=== PATIENT | male | born 1950 | race Caucasian/White ===

== ENCOUNTER → 2016-09-17 | Outpatient (CLI) | payer MEDICARE, BC ==
--- NOTE | 2016-09-17 10:04 | CT ---
EXAMINATION TYPE: CT sinus wo con DATE OF EXAM: 09/17/2016 COMPARISON: NONE HISTORY: sinusitis CT DLP: 564.4 mGycm CONTRAST: 0 mL of Omnipaque 300 The paranasal sinuses are examined in the axial plane at 2 mm thick sections. Reconstructed images i n the coronal plane were obtained. There is dental amalgam scatter artifact There is mucosal thickening and small retention cyst within the right maxillary sinus. Left maxillary sinus appears clear. Minimal mucosal thickening is within the bilateral anterior and left mid ethmo id air cells. The sphenoid sinuses are clear. The frontal sinuses are clear. The septum is evaluated. There is septal deviation to the right. Right septal spur is also noted. Th ere is a left chloé bullosa. The ostiomeatal units are patent. IMPRESSIONS: 1. Mild mucosal thickening or retention cyst within the right maxillary sinus. 2. Right septal deviation.
== END | disposition home or self-care (01) ==
LOC: RADCTMAIN 07:07
PROVIDERS: ATTEND Otolaryngology
DX: J34.2 Deviated nasal septum (principal); J01.90 Acute sinusitis, unspecified
CPT/HCPCS: 70486; 94060; 94726; 94729

== ENCOUNTER → 2017-05-01 | Outpatient (CLI) | payer MEDICARE, BC ==
--- NOTE | 2017-05-01 12:36 | XR ---
EXAMINATION TYPE: XR chest 2V DATE OF EXAM: 05/01/2017 COMPARISON: 09/28/2012 HISTORY: Cough for 4 weeks with history of asthma TECHNIQUE: Frontal and lateral views of the chest are obtained. FINDINGS: There is no focal air space opacity, pleural effusion, or pneumothorax seen. The cardiac silhouette size is within normal limits. The osseous structures are intact. Mild multilevel degener ative changes of the thoracic spine are noted. Chronic mild right hemidiaphragm elevation is seen wit h eventration. IMPRESSION: No acute cardiopulmonary process.
== END | disposition home or self-care (01) ==
LOC: RADXRMAIN 11:42
PROVIDERS: ATTEND Family Medicine
DX: J45.901 Unspecified asthma with (acute) exacerbation (principal)
CPT/HCPCS: 71046

== ENCOUNTER 2018-06-25 10:37 | Day surgery (SDC) | payer BC, MEDICARE ==
[2018-06-21 15:06] VITALS: BMI 29.5
[~2018-06-25 10:37] MED LIST: ACETAMINOPHEN TAB 500 MG TAB PO ONE; ONDANSETRON 4 MG/2 ML VIAL IVP ONE; TRANEXAMIC ACID 1,000 MG in SODIUM CHLORIDE 0.9% 100 ML IVPB ONE; ceFAZolin IN SWFI 2 GM/20 ML SYRINGE IVP ONE
[2018-06-25] MEDS ORDERED: DEXAMETHASONE SOD PHOS (MDV) 100 MG/10 ML VIAL IVP ONE (11:20)
[2018-06-25] MEDS ORDERED: LACTATED RINGERS 1,000 ML IV ONE ×2 (11:20)
[2018-06-25] MEDS ORDERED: fentaNYL (PF) 50 MCG/ML 2 ML AMP IVP ONE (11:29)
[2018-06-25] MEDS ORDERED: MIDAZOLAM 2 MG/2 ML VIAL IVP ONE (11:29)
--- NOTE | 2018-06-25 12:02 | P.ONQ ---
Anesthesiology Proc Note - PNB - Peripheral Nerve Block Performed Right Interscalene Single Time Out Performed: Yes Procedure Start Time: 11:28 Indication: Acute Post-Operative Pain Specifically requested for management of pain by DrMel: Anish Amaya Sedation Type: Sedate with meaningful contact maintained Preparation: Sterile Prep Position: Supine Catheter: None Needle Types: Other (see comment) (Pajunk) Needle Size: 50mm (2") Needle Gauge: 21 Technique: Ultrasound Injectate: 0.5% Ropivacaine (see comment for volume) (20cc) Blood Aspirated: No Pain Paresthesia on Injection Noted: No Resistance on Injection: Normal Events: Uneventful and Well Tolerated
[2018-06-25] MEDS ORDERED: ePHEDrine SULFATE/0.9% NACL/PF 50 MG/5 ML SYRINGE IV ONE (12:42)
[2018-06-25] MEDS ORDERED: PROPOFOL 10 MG/ML 20 ML VIAL IV ONE (12:42)
[2018-06-25] MEDS ORDERED: MIDAZOLAM 2 MG/2 ML VIAL ONE (12:42)
[2018-06-25] MEDS ORDERED: ROCURONIUM BROMIDE 10 MG/ML 10 ML VIAL IV ONE (12:42)
[2018-06-25] MEDS ORDERED: SUCCINYLCHOLINE CHLORIDE 100 MG/5 ML SYR IV ONE (12:42)
[2018-06-25] MEDS ORDERED: SODIUM CHLORIDE 0.9% 100 ML BAG ONE (12:42)
[2018-06-25] MEDS ORDERED: EPINEPHrine 4 MG in SODIUM CHLORIDE 0.9% IRRIGATIO 3,000 ML IRRIGATION ONE ×8 (12:42)
[2018-06-25] MEDS ORDERED: ROPIVACAINE 5 MG/ML 30 ML VIAL ONE (12:42)
[2018-06-25] MEDS ORDERED: fentaNYL (PF) 50 MCG/ML 2 ML AMP ONE (12:42)
[2018-06-25] MEDS ORDERED: TRANEXAMIC ACID 1,000 MG/10 ML VIAL ONE (12:42)
[2018-06-25 15:26] VITALS: TEMP 98
--- NOTE | 2018-06-25 15:38 | P.OP ---
Date of Procedure: 06/25/18 Procedure(s) Performed: right shoulder rcr 1 anchor margin convergence x2 SAD, PDCE, bicep tenotomy, chondroplasty of humeral head and glenoid Grade IV OA GHJ and ACJ severe biceps tendinopathy Labral degen severe partial tear subscap severe impingement with SAB and adhesions PORTIA Salazar assist PREOPERATIVE DIAGNOSES: 1. Right shoulder rotator cuff tear. 2. Chronic impingement syndrome. 3. Acromioclavicular osteoarthritis. 4. Superior labral degenerative tear. POSTOPERATIVE DIAGNOSES: 1. Right shoulder rotator cuff tear (supraspinatus, 1.5 cm, U-shaped). 2. Chronic impingement syndrome. 3. Acromioclavicular osteoarthritis. 4. Labral degenerative tear. 5. Severe biceps tendon degeneration 6. Moderate adhesions glenohumeral joint and subacromial space 7. Grade 4 osteoarthritis glenohumeral joint PROCEDURES PERFORMED: 1. Right shoulder arthroscopy with rotator cuff repair (margin convergence plus 1 anchor) 2. Arthroscopic partial distal clavicle excision 3. Arthroscopic lysis of adhesions with subacromial bursectomy and manipulation under anesthesia 4. Arthroscopic debridement superior labral tear, partial subscapularis tear, chondroplasty of humeral head and glenoid, and biceps tenotomy 5. Arthroscopic subacromial decompression ANESTHESIA: General. ESTIMATED BLOOD LOSS: Less than 25 mL TOURNIQUET: None TROUBLE LOCATOR TEST DESK: Sandra Salazar (assistance with: Positioning, retraction, camera operation, repair, closure, dressing) COMPLICATIONS: None. DISPOSITION: To postanesthesia care unit INDICATIONS: Mr. Vaughn is a 68 year old male with a history of rotator cuff difficulties. He has been treated with conservative management with physical therapy with no significant relief of symptoms. MRI was suspicious for a tear, and the patient wishes to have it repaired. I have examined the patient in the office and proposed rotator cuff repair via an arthroscopic or mini-open approach, as well as other procedures to optimize the shoulder and outcome, such as decompression of spurs and debridement of loose or degenerated tissue. I have explained the risks of this surgery as being inclusive of, but not limited to: bleeding, infection, scarring, discomfort, blood vessel and/or nerve damage, need for further surgery, stiffness, persistence or worsening of problems, , and other risks. The consent form has been completed and signed. PROCEDURE: Appropriate consent was obtained from the patient. The patient was taken to the operating room and placed in the supine position. General anesthesia was initiated and after confirmation of adequate anesthesia, the patients right shoulder was examined. Initial range of motion showed flexion to 150, abduction to 150, external rotation to 50, and internal rotation to 35. Using Codman's paradox maneuver, the shoulder was manipulated. Final range of motion showed flexion to 170 abduction to 170, external rotation to 70 and internal rotation to 70. The shoulder was stable. Next, the patient was rotated into the lateral decubitus position and stabilized to the table with a becker bag and padded straps. Care was taken to make sure that all pressure points were adequately padded. Bear-hugger was used along with bilateral leg sequential compression devices. Prepping and draping was completed in the usual aseptic fashion using ChloraPrep. The patient received intravenous antibiotics prior to incision. The shoulder was suspended from traction with 15 lbs. of weight in a position of 45 degrees abduction. Landmarks were outlined with a skin marking pen. A spinal needle was inserted into the glenohumeral joint and fluid was administered to distend the joint. Some pressure was noted after 100 mL was administered. A posterior portal was created using an 11 blade and the arthroscopic canula, over a dull trocar, was carefully inserted into the joint. Arthroscopy then commenced. An anterior portal was inserted in the rotator interval area using inside-out technique. Biceps tendon showed severe deterioration. Biceps tenotomy was performed using a shaver. The tendon stump was then allowed to retract into the bicipital groove. Infraspinatus and teres minor attachments were normal. Subscapularis tendon showed a partial tear along the superior rolled border which was addressed with debridement. Hyaline cartilage of the glenoid and humeral head showed degenerative changes typical for age. Supraspinatus attachment after superficial debridement showed a 1.5 cm tear which was full thickness and U- shaped. No loose bodies were noted in the joint. Superior labrum showed moderate degenerative tearing but was well-attached. Negative peel back sign. There was also evidence of significant degenerative labral tearing in the inferior area. Glenohumeral joint was severely arthritic, with changes on both sides of the joint. Chondroplasty was performed on both the glenoid and the humerus using a ArthroCare device and mechanical shaver. Additionally, loose fibers of labrum in this area were debrided away back to stable labrum. Synovitis with adhesions was noted superior to the superior labrum and within the rotator interval. This was debrided and removed where the capsule appeared inflamed, using an arthroscopic shaver. Attention was then directed to the subacromial space. The camera and instruments were redirected into the subacromial space and bursoscopy was performed. The patients bursa was inflamed and thickened, indicating chronic bursitis with adhesions. A lateral portal was created using outside-in technique. The supraspinatus tendon was examined particularly closely. There was an approximately 1.5 cm full thickness U shaped tear. The loose fibers of the tear were debrided back to stable tissue and the defect in the tendon was repaired arthroscopically after careful preparation of the supraspinatus footprint with salvador and rasp to create a good bleeding surface of bone, see below. The subacromial bursa contained moderate degenerative appearing adhesions within the superior space, but also the lateral anterior and posterior spaces as well. This degenerative material which consisted of thickened bursal material, was resected using a shaver. Meticulous hemostasis was maintained using the ArthroCare device. The undersurface of the acromion had frictional changes consistent with impingement syndrome. The underside of the acromion anteriorly was cleared of soft tissue using an arthroscopic radiofrequency ablator. The frictional changes of the rotator cuff matched exactly the location of the rotator cuff tear in the critical zone. A formal subacromial decompression was performed using a salvador. Approximately 5 mm of material was removed from the anterior-inferior corner of the acromion. This resection was beveled upwards laterally, and carried to the AC joint. The AC joint appeared arthritic with inferior spurring. This spurring was removed with a salvador, co-planing the resection with the acromial resection. The rotator cuff tear was then repaired as follows. Supraspinatus footprint was debrided back to bleeding bone using a salvador. Full decortication was not performed. To simple margin convergence type sutures of #2 FiberWire was deployed into the medial portion of the rotator cuff tear. A reverse mattress suture using Fiber Tape from [employer] was deployed into the torn supraspinatus edge. A 4.75 mm Swivelock anchor was then deployed at the greater tuberosity and the suture tension was adjusted so that there was complete reduction and coverage of the footprint. The #2 suture contained within the anchor was also used for additional fixation of the cuff tissue, and applying a horizontal mattress type suture and tying the suture with alternating half hitches arthroscopically. It was noted that there was complete closure of the cuff defect. The repair was stable. Subsequently, 4-0 Monocryl was used to close the portal holes. Steri-strips were applied as well as sterile dressing. The shoulder was then placed into a sling and the patient was transferred to recovery room in stable condition. Sponge and needle counts were correct.
[2018-06-25 16:24] VITALS: RESP 18
[2018-06-25 17:28] VITALS: BP 127/67; PULSE 99
== END 2018-06-25 18:00 | disposition home or self-care (01) ==
LOC: OR 10:37
PROVIDERS: ATTEND Orthopaedic Surgery
DX: M75.121 Complete rotator cuff tear or rupture of right shoulder, not specified as traumatic (principal); M24.111 Other articular cartilage disorders, right shoulder; M75.41 Impingement syndrome of right shoulder; M65.811 Other synovitis and tenosynovitis, right shoulder; M19.011 Primary osteoarthritis, right shoulder; I10 Essential (primary) hypertension; M75.01 Adhesive capsulitis of right shoulder; K21.9 Gastro-esophageal reflux disease without esophagitis; E78.5 Hyperlipidemia, unspecified; H91.90 Unspecified hearing loss, unspecified ear; M75.21 Bicipital tendinitis, right shoulder; F39 Unspecified mood [affective] disorder; Z86.73 Personal history of transient ischemic attack (TIA), and cerebral infarction without residual deficits; Z79.1 Long term (current) use of non-steroidal anti-inflammatories (NSAID); Z88.5 Allergy status to narcotic agent; Z79.899 Other long term (current) drug therapy
CPT/HCPCS: 29827; 29825; 29826; 64415; C1713 ×2; C1894; J0171; J2250; J2405; J3010; J1100; J2795; J0330; J2704; J0690

== ENCOUNTER 2018-07-15 18:59 | Emergency (ER) | payer MEDICARE ==
[2018-07-15] MEDS ORDERED: SODIUM CHLORIDE 0.9% 2,000 ML IV ONE (19:17)
[2018-07-15] MEDS ORDERED: SUCRALFATE 1 GM TAB PO STA (19:17)
[2018-07-15] MEDS ORDERED: MAG HYDROX/AL HYDROX/SIMETH 30 ML CUP PO PRN (19:17)
[2018-07-15] MEDS ORDERED: MORPHINE SULFATE 4 MG/ML SYRINGE IVP STA (19:17)
[2018-07-15] MEDS ORDERED: ONDANSETRON 4 MG/2 ML VIAL IVP STA (19:17)
[2018-07-15] MEDS ORDERED: FAMOTIDINE 20 MG/2 ML VIAL IV STA (19:17)
--- NOTE | 2018-07-15 19:23 | ED ---
General Adult HPI - General Chief complaint: GI Bleed Stated complaint: Ulcer Time Seen by Provider: 07/15/18 19:06 Source: patient Mode of arrival: ambulatory Limitations: no limitations - History of Present Illness Initial comments: Patient is a 68-year-old male who presents with a chief complaint of abdominal pain, dark stools. The patient has a recent history of a right shoulder surgery. He states he was doing well and completely off his pain medication until he slipped and fell. He states that since that time he has been taking [place], Tylenol, and Motrin. He does not have any previous medical history of ulcers or GI bleed however he does have a history of GERD and takes omeprazole twice daily. The patient cannot identify an inciting incident to his symptoms. There are no aggravating or alleviating factors. Timing is constant. Patient states she has not been able to eat or drink in 3 days. He denies any nausea or vomiting. - Related Data Home Medications Medication Instructions Recorded Confirmed Citalopram Hydrobromide [CeleXA] 10 mg PO QAM 09/01/14 07/15/18 Ibuprofen [Motrin] 800 mg PO Q8HR PRN 09/01/14 07/15/18 Multivitamins, Thera [Theragran] 1 each PO DAILY 09/01/14 07/15/18 Omeprazole [PriLOSEC] 20 mg PO BID 09/01/14 07/15/18 Acetaminophen [Tylenol Extra 1,000 mg PO BID 06/21/18 07/15/18 Strength] Cholecalciferol (Vitamin D3) 2,000 unit PO DAILY 06/21/18 07/15/18 [Vitamin D3] Losartan [Cozaar] 50 mg PO DAILY 06/21/18 07/15/18 Aspirin [Phelps Aspirin EC] 81 mg PO DAILY 07/15/18 07/15/18 L.acidoph,Paracasei, B.lactis 1 cap PO DAILY 07/15/18 07/15/18 [Probiotic] Lactase [Lactaid] 9,000 unit PO Q6HR PRN 07/15/18 07/15/18 Previous Rx's Medication Instructions Recorded HYDROcodone/APAP 7.5-325MG [[place] 1 - 2 tab PO Q4-6H PRN #50 tab 06/25/18 7.5-325] Cephalexin [Keflex] 500 mg PO Q6HR #28 cap 07/15/18 Omeprazole 40 mg PO BID #30 capsule. 07/15/18 Pantoprazole [Protonix] 40 mg PO BID #30 tablet. 07/15/18 Sucralfate [Carafate] 1 gm PO ACHS #45 tablet 07/15/18 Allergies Allergy/AdvReac Type Severity Reaction Status Date / Time codeine Allergy Rapid Verified 07/15/18 19:25 Heart Rate gluten Allergy Nausea & Verified 07/15/18 19:25 Vomiting & Diarrhea lactose Allergy Nausea & Verified 07/15/18 19:25 Vomiting & Diarrhea tramadol HCl [From Ultram] Allergy Rapid Verified 07/15/18 19:25 Heart Rate Review of Systems ROS Statement: Those systems with pertinent positive or pertinent negative responses have been documented in the HPI. ROS Other: All systems not noted in ROS Statement are negative. Gastrointestinal: Reports: abdominal pain, diarrhea, melena Past Medical History Past Medical History: CVA/TIA, GERD/Reflux, Hypertension, Osteoarthritis (OA) Additional Past Medical History / Comment(s): DDD NECK PROBLEM TURNING NECK, BONE SPURS ON NECK,IBS, STATES ABNORMAL GAIT R/T STROKE History of Any Multi-Drug Resistant Organisms: None Reported Past Surgical History: Back Surgery, Heart Catheterization, Hernia Repair, Joint Replacement, Orthopedic Surgery Additional Past Surgical History / Comment(s): HEART CATH X 5, RT HIP REPLACEMENT, LT INGUINAL HERNIA REPAIR, FATTY TUMOR REMOVED LT INDEX FINGER AND BACK, LEFT ROTATOR CUFF WITH LEFT BICEP TENDON REPAIR, MAYDA KNEE ARTHROSCOPY Past Anesthesia/Blood Transfusion Reactions: No Reported Reaction Past Psychological History: Anxiety Smoking Status: Never smoker Past Alcohol Use History: None Reported Past Drug Use History: None Reported - Past Family History Mother Family Medical History: No Reported History Additional Family Medical History / Comment(s): LIVING AT 88 YRS OLD Father Additional Family Medical History / Comment(s): HEART VALVE REPLACED.PARKINSON'S DISEASE. AT AGE 71. General Exam Limitations: no limitations General appearance: alert, in no apparent distress Head exam: Present: atraumatic, normocephalic Eye exam: Present: normal appearance ENT exam: Present: normal exam Neck exam: Present: normal inspection Respiratory exam: Present: normal lung sounds bilaterally. Absent: respiratory distress, wheezes Cardiovascular Exam: Present: normal rhythm, tachycardia GI/Abdominal exam: Present: soft, tenderness. Absent: distended, guarding, rebound, rigid Extremities exam: Present: normal inspection, other (Patient's right shoulder is in a shoulder immobilizer). Absent: full ROM Back exam: Present: normal inspection Neurological exam: Present: alert, oriented X3 Psychiatric exam: Present: normal affect, normal mood Skin exam: Present: warm, dry, intact Course Vital Signs 07/15/18 07/15/18 19:01 21:19 Temperature 99 F Pulse Rate 119 H 76 Respiratory 20 18 Rate Blood Pressure 117/78 129/80 O2 Sat by Pulse 99 95 Oximetry Medical Decision Making - Medical Decision Making Patient presents with chief complaint of abdominal pain and dark stools. On initial evaluation, vital signs are stable though the patient is tachycardic. Patient will be evaluated. Labs including cardiac enzymes, computed tomography scan of the abdomen and pelvis with IV contrast, and chest x-ray. Patient was given morphine, Zofran, and IV fluids. He was given a GI cocktail in addition he has a history of GERD. EKG performed in 194 shows sinus tachycardia with a rate of 108 bpm. Symptoms are within normal limits, EKG is otherwise unremarkable. 10:47 PM Laboratory evaluation of this patient shows white blood cell count of 11,000, the urine is elevated at 36, occult stool was positive. Hemoglobin is 15.2, stable compared to previous values. Patient shows signs of dehydration with a creatinine of 1.31. There is 2+ ketones in the urine. Patient is not diabetic, blood glucose is 107. There is hematuria with 105 red blood cells, 13 white cells. Computed tomography scan of the abdomen and pelvis shows evidence of diverticulosis without acute infection. Her multiple small renal calculi within the kidneys, largest measuring 3 mm. There is no evidence of obstructive uropathy. Reevaluation, patient states he feels better. It is possible that the patient passed a kidney stone. Regarding the GI bleeding, this is likely from an upper GI source. Hemoglobin is stable. Patient has a history of GERD and states that he takes Prilosec, 20 mg twice daily. At this time, patient has received 2 L of IV fluids, his pain is controlled, and he feels well. Patient will be instructed to increase his Prilosec to 40 mg twice daily, Carafate was added to his home regimen. Patient states he sees Dr. Mccartney for GI. He was instructed to follow up with primary care, in GI in 1-2 days, return to the ED if symptoms worsen or change. Patient was offered admission given his shoulder injury, and somewhat debilitated status at home however he states his is very care for him and they feel comfortable with discharge. - Lab Data Result diagrams: 07/15/18 19:35 07/15/18 19:35 Lab Results 07/15/18 07/15/18 07/15/18 Range/Units 19:35 19:35 19:35 WBC 11.0 H (3.8-10.6) k/uL RBC 4.88 (4.30-5.90) m/uL Hgb 15.2 (13.0-17.5) gm/dL Hct 44.2 (39.0-53.0) % MCV 90.5 (80.0-100.0) fL MCH 31.1 (25.0-35.0) pg MCHC 34.3 (31.0-37.0) g/dL RDW 13.7 (11.5-15.5) % Plt Count 332 (150-450) k/uL Neutrophils % 81 % Lymphocytes % 11 % Monocytes % 6 % Eosinophils % 1 % Basophils % 0 % Neutrophils # 8.9 H (1.3-7.7) k/uL Lymphocytes # 1.2 (1.0-4.8) k/uL Monocytes # 0.7 (0-1.0) k/uL Eosinophils # 0.1 (0-0.7) k/uL Basophils # 0.0 (0-0.2) k/uL Sodium 140 (137-145) mmol/L Potassium 4.5 (3.5-5.1) mmol/L Chloride 103 (98-107) mmol/L Carbon Dioxide 23 (22-30) mmol/L Anion Gap 14 mmol/L BUN 36 H (9-20) mg/dL Creatinine 1.31 H (0.66-1.25) mg/dL Est GFR (CKD-EPI)AfAm 65 (>60 ml/min/1.73 sqM) Est GFR (CKD-EPI)NonAf 56 (>60 ml/min/1.73 sqM) Glucose 107 H (74-99) mg/dL Calcium 10.8 H (8.4-10.2) mg/dL Total Bilirubin 0.9 (0.2-1.3) mg/dL AST 23 (17-59) U/L ALT 19 L (21-72) U/L Alkaline Phosphatase 83 (38-126) U/L Troponin I (0.000-0.034) ng/mL NT-Pro-B Natriuret Pep pg/mL Total Protein 7.9 (6.3-8.2) g/dL Albumin 4.8 (3.5-5.0) g/dL Lipase 85 (23-300) U/L Urine Color Urine Appearance (Clear) Urine pH (5.0-8.0) Ur Specific [place] (1.001-1.035) Urine Protein (Negative) Urine Glucose (UA) (Negative) Urine Ketones (Negative) Urine Blood (Negative) Urine Nitrite (Negative) Urine Bilirubin (Negative) Urine Urobilinogen (<2.0) mg/dL Ur Leukocyte Esterase (Negative) Urine RBC (0-5) /hpf Urine WBC (0-5) /hpf Hyaline Casts (0-2) /lpf Urine Mucus (None) /hpf Stool Occult Blood (Negative) Blood Type O Positive Blood Type Recheck No Antibody Screen NEGATIVE Spec Expiration Date 07/18/2018 - 233407/15/18 07/15/18 07/15/18 Range/Units 19:35 19:35 20:05 WBC (3.8-10.6) k/uL RBC (4.30-5.90) m/uL Hgb (13.0-17.5) gm/dL Hct (39.0-53.0) % MCV (80.0-100.0) fL MCH (25.0-35.0) pg MCHC (31.0-37.0) g/dL RDW (11.5-15.5) % Plt Count (150-450) k/uL Neutrophils % % Lymphocytes % % Monocytes % % Eosinophils % % Basophils % % Neutrophils # (1.3-7.7) k/uL Lymphocytes # (1.0-4.8) k/uL Monocytes # (0-1.0) k/uL Eosinophils # (0-0.7) k/uL Basophils # (0-0.2) k/uL Sodium (137-145) mmol/L Potassium (3.5-5.1) mmol/L Chloride (98-107) mmol/L Carbon Dioxide (22-30) mmol/L Anion Gap mmol/L BUN (9-20) mg/dL Creatinine (0.66-1.25) mg/dL Est GFR (CKD-EPI)AfAm (>60 ml/min/1.73 sqM) Est GFR (CKD-EPI)NonAf (>60 ml/min/1.73 sqM) Glucose (74-99) mg/dL Calcium (8.4-10.2) mg/dL Total Bilirubin (0.2-1.3) mg/dL AST (17-59) U/L ALT (21-72) U/L Alkaline Phosphatase (38-126) U/L Troponin I <0.012 (0.000-0.034) ng/mL NT-Pro-B Natriuret Pep 40 pg/mL Total Protein (6.3-8.2) g/dL Albumin (3.5-5.0) g/dL Lipase (23-300) U/L Urine Color Urine Appearance (Clear) Urine pH (5.0-8.0) Ur Specific [place] (1.001-1.035) Urine Protein (Negative) Urine Glucose (UA) (Negative) Urine Ketones (Negative) Urine Blood (Negative) Urine Nitrite (Negative) Urine Bilirubin (Negative) Urine Urobilinogen (<2.0) mg/dL Ur Leukocyte Esterase (Negative) Urine RBC (0-5) /hpf Urine WBC (0-5) /hpf Hyaline Casts (0-2) /lpf Urine Mucus (None) /hpf Stool Occult Blood Positive (Negative) Blood Type Blood Type Recheck Antibody Screen Spec Expiration Date 07/15/18 Range/Units 20:20 WBC (3.8-10.6) k/uL RBC (4.30-5.90) m/uL Hgb (13.0-17.5) gm/dL Hct (39.0-53.0) % MCV (80.0-100.0) fL MCH (25.0-35.0) pg MCHC (31.0-37.0) g/dL RDW (11.5-15.5) % Plt Count (150-450) k/uL Neutrophils % % Lymphocytes % % Monocytes % % Eosinophils % % Basophils % % Neutrophils # (1.3-7.7) k/uL Lymphocytes # (1.0-4.8) k/uL Monocytes # (0-1.0) k/uL Eosinophils # (0-0.7) k/uL Basophils # (0-0.2) k/uL Sodium (137-145) mmol/L Potassium (3.5-5.1) mmol/L Chloride (98-107) mmol/L Carbon Dioxide (22-30) mmol/L Anion Gap mmol/L BUN (9-20) mg/dL Creatinine (0.66-1.25) mg/dL Est GFR (CKD-EPI)AfAm (>60 ml/min/1.73 sqM) Est GFR (CKD-EPI)NonAf (>60 ml/min/1.73 sqM) Glucose (74-99) mg/dL Calcium (8.4-10.2) mg/dL Total Bilirubin (0.2-1.3) mg/dL AST (17-59) U/L ALT (21-72) U/L Alkaline Phosphatase (38-126) U/L Troponin I (0.000-0.034) ng/mL NT-Pro-B Natriuret Pep pg/mL Total Protein (6.3-8.2) g/dL Albumin (3.5-5.0) g/dL Lipase (23-300) U/L Urine Color Yellow Urine Appearance Cloudy (Clear) Urine pH 5.5 (5.0-8.0) Ur Specific [place] 1.021 (1.001-1.035) Urine Protein 1+ H (Negative) Urine Glucose (UA) Negative (Negative) Urine Ketones 2+ H (Negative) Urine Blood Moderate H (Negative) Urine Nitrite Negative (Negative) Urine Bilirubin Negative (Negative) Urine Urobilinogen <2.0 (<2.0) mg/dL Ur Leukocyte Esterase Trace H (Negative) Urine RBC 105 H (0-5) /hpf Urine WBC 13 H (0-5) /hpf Hyaline Casts 6 H (0-2) /lpf Urine Mucus Moderate H (None) /hpf Stool Occult Blood (Negative) Blood Type Blood Type Recheck Antibody Screen Spec Expiration Date Disposition Clinical Impression: Melena, UTI (urinary tract infection), Dehydration Disposition: HOME SELF-CARE Condition: Good Instructions (If sedation given, give patient instructions): Gastrointestinal Bleeding (ED) Prescriptions: Sucralfate [Carafate] 1 gm PO ACHS #45 tablet Cephalexin [Keflex] 500 mg PO Q6HR #28 cap Omeprazole 40 mg PO BID #30 capsule. Pantoprazole [Protonix] 40 mg PO BID #30 tablet.dr Is patient prescribed a controlled substance at d/c from ED?: No Referrals: Og Bal MD [Primary Care Provider] - 1-2 days
[2018-07-15 19:57] LABS: Albumin 4.8 g/dL (3.5-5.0); Calcium 10.8 mg/dL (8.4-10.2); Potassium 4.5 mmol/L (3.5-5.1); Total Bilirubin 0.9 mg/dL (0.2-1.3); Total Protein 7.9 g/dL (6.3-8.2)
[2018-07-15 20:02] LABS: Basophils % (A) 0 %; Eosinophils # (A) 0.1 k/uL (0-0.7); Eosinophils % (A) 1 %; HCT 44.2 % (39.0-53.0); HGB 15.2 gm/dL (13.0-17.5); Lymphocytes # (A) 1.2 k/uL (1.0-4.8); Lymphocytes % (A) 11 %; MCH 31.1 pg (25.0-35.0); MCHC 34.3 g/dL (31.0-37.0); MCV 90.5 fL (80.0-100.0); Mean Platelet Volume 7.6; Monocytes # (A) 0.7 k/uL (0-1.0); Monocytes % (A) 6 %; Neutrophils # (A) 8.9 k/uL (1.3-7.7); Neutrophils % (A) 81 %; Platelet Count 332 k/uL (150-450); RBC 4.88 m/uL (4.30-5.90); RDW 13.7 % (11.5-15.5)
[2018-07-15 20:48] LABS: Appearance,Urine Cloudy (Clear); Bilirubin,Urine Negative (Negative); Blood,Urine Moderate (Negative); Color,Urine Yellow; Glucose,Urine (UA) Negative (Negative); Hyaline Casts,Urine 6 /lpf (0-2); Ketones,Urine 2+ (Negative); Leukocyte Esterase,Urine Trace (Negative); Mucus,Urine Moderate /hpf; Nitrite,Urine Negative (Negative); PH, Urine 5.5 (5.0-8.0); Protein,Urine 1+ (Negative); RBC,Urine 105 /hpf (0-5); Specific Gravity,Urine 1.021 (1.001-1.035); Urobilinogen,Urine <2.0 mg/dL (<2.0); WBC,Urine 13 /hpf (0-5)
--- NOTE | 2018-07-15 20:48 | CT ---
EXAMINATION TYPE: CT abdomen pelvis w con DATE OF EXAM: 07/15/2018 COMPARISON: 09/24/2012 HISTORY: Abdominal pain. CT DLP: 1035.6 mGycm Automated exposure control for dose reduction was used. TECHNIQUE: Helical acquisition of images was performed from the lung bases through the pelvis. CONTRAST: Performed without Oral Contrast and with IV Contrast, patient injected with 80ml mL of Isovue 300. FINDINGS: Lung bases are clear. There is no pleural effusion. Heart size is normal. There is no pericardial eff usion. Stomach appears normal. Liver spleen pancreas gallbladder appear normal. Bile ducts are not di lated. There is no adrenal mass. There are multiple nonobstructing bilateral renal calculi that measure up t o 3 mm. There is no hydronephrosis. There is no retroperitoneal adenopathy. There is 1.5 cm cortical cyst posterior right kidney. Bladder distends smoothly. There is no free fluid in the pelvis. There i s no inguinal hernia. There is right hip prosthesis. There is no evidence of a pelvic mass. There is no mesenteric edema. There is no sign of free air. There is no ascites. There is no sign of a bowel o bstruction. There are some small bowel loops in the left abdomen with mild wall thickening. There is no evidence of thickened appendix. There are multiple sigmoid diverticula. There is no sign of divert iculitis. Lumbar vertebra have fairly normal alignment. There is multilevel degenerative disc space narrowing w ith spur formation. I see no bony destructive process. There is right hip prosthesis. IMPRESSION: THERE IS SIGMOID DIVERTICULOSIS WITHOUT DIVERTICULITIS. MULTIPLE NONOBSTRUCTING SMALL RENAL CALCULI. DIVERTICULOSIS APPEARS WORSE THAN OLD CT SCAN. RENAL CALCULI INCREASED COMPARED TO OLD EXAM.
--- NOTE | 2018-07-15 20:50 | XR ---
EXAMINATION TYPE: XR chest 2V DATE OF EXAM: 07/15/2018 COMPARISON: 05/01/2017 HISTORY: Hypertension TECHNIQUE: Frontal and lateral views of the chest are obtained. FINDINGS: Heart and mediastinum are normal. Lungs are clear. Costophrenic angles are clear. There ar e chest leads. Bony thorax is intact. IMPRESSION: Normal chest. No change.
[2018-07-15 23:22] VITALS: BP 148/96; PULSE 70; RESP 16; TEMP 98.8
== END 2018-07-15 23:22 | disposition home or self-care (01) ==
LOC: EC 18:59
DX: K92.1 Melena (principal); N39.0 Urinary tract infection, site not specified; E86.0 Dehydration; K57.90 Diverticulosis of intestine, part unspecified, without perforation or abscess without bleeding; N20.0 Calculus of kidney; R00.0 Tachycardia, unspecified; K21.9 Gastro-esophageal reflux disease without esophagitis; I10 Essential (primary) hypertension; M19.90 Unspecified osteoarthritis, unspecified site; F41.9 Anxiety disorder, unspecified; Z86.14 Personal history of Methicillin resistant Staphylococcus aureus infection; Z95.818 Presence of other cardiac implants and grafts; Z96.641 Presence of right artificial hip joint; Z79.82 Long term (current) use of aspirin; Z79.899 Other long term (current) drug therapy; Z88.5 Allergy status to narcotic agent; Z91.018 Allergy to other foods; Z91.011 Allergy to milk products
CPT/HCPCS: 36415; 93005; 86900; 86901; 83880; 80053; 83690; 84484; 85025; 86850; 82272; 81001; 71046; 74177; 99284; 96374; 96375 ×2; 96361; J2270; J2405; Q9967

== ENCOUNTER 2018-07-30 09:37 | Day surgery (SDC) | payer MEDICARE ==
[2018-07-29 09:14] VITALS: BMI 29.5
[~2018-07-30 09:37] MED LIST changes: -ACETAMINOPHEN TAB 500 MG TAB PO ONE; +LACTATED RINGERS 1,000 ML IV SCH; -ONDANSETRON 4 MG/2 ML VIAL IVP ONE; -TRANEXAMIC ACID 1,000 MG in SODIUM CHLORIDE 0.9% 100 ML IVPB ONE; -ceFAZolin IN SWFI 2 GM/20 ML SYRINGE IVP ONE
[2018-07-30 10:32] VITALS: TEMP 97.4
[2018-07-30] MEDS ORDERED: LIDOCAINE 1% 20 ML VIAL (10MG/ML) FOR IV START INTRADERMA ONE (10:39)
[2018-07-30] MEDS ORDERED: PROPOFOL 10 MG/ML 20 ML VIAL IV ONE (11:34)
[2018-07-30] MEDS ORDERED: LIDOCAINE 1% INJ 10MG/ML (20 ML MDV) ONE (11:34)
--- NOTE | 2018-07-30 11:52 | P.PCN ---
Date of Procedure: 07/30/18 Procedure(s) Performed: BRIEF HISTORY: Patient is a 68-year-old, pleasant, white male, scheduled for an upper endoscopy as a part of surveillance of long-standing history of GERD and Fatima's esophagus. He remains on omeprazole 20 mg twice daily and doing well. Denies any dysphagia or breakthrough heartburn. PROCEDURE PERFORMED: Esophagogastroduodenoscopy with biopsy. PREOPERATIVE DIAGNOSIS: GERD/Fatima's esophagus. IV sedation per anesthesia. PROCEDURE: After informed consent was obtained, the patient was brought into the endoscopy unit. IV sedation was administered by Anesthesia under continuous monitoring. Initially the Olympus GIF-140 video endoscope was inserted into the mouth. Esophagus intubated without any difficulty. It was gradually advanced into the stomach and duodenum and carefully examined. The bulb and the second part of the duodenum appeared normal. The scope at this time was withdrawn to the stomach, adequately insufflated with air, and upon careful examination, mucosa of the antrum, body, cardia and the fundus appeared normal. The scope was then withdrawn into the esophagus. Moderate size hiatal hernia noted. The GE junction was located at 36 cm from the incisors. There was 2 cm length of Fatima's appearing mucosa extending from 34-36 cm from the incisors and multiple biopsies were done from this area. The rest of the esophagus appeared normal. There were no erosions or ulcerations seen and the patient tolerated the procedure well. IMPRESSION: 1. Fatima's esophagus extending from 34-36 cm from the incisors status post multiple biopsies to rule out dysplasia. 2. Moderate size hiatal hernia.. RECOMMENDATIONS: The findings of this examination were discussed with the patient as well as his family. He was advised to follow with the biopsy results. He will remain on omeprazole 20 mg twice daily and follow antireflux measures. If there is no evidence of dysplasia he can have a repeat upper endoscopy in 2 years..
[2018-07-30 12:02] VITALS: PULSE 60
[2018-07-30 12:19] VITALS: BP 162/87; RESP 16
== END 2018-07-30 12:37 | disposition home or self-care (01) ==
LOC: ORWHC2ENDO 09:37
PROVIDERS: ATTEND Internal Medicine Gastroenterology
DX: K22.70 Barrett's esophagus without dysplasia (principal); K44.9 Diaphragmatic hernia without obstruction or gangrene; I10 Essential (primary) hypertension; M19.90 Unspecified osteoarthritis, unspecified site; Z86.73 Personal history of transient ischemic attack (TIA), and cerebral infarction without residual deficits; Z88.5 Allergy status to narcotic agent; Z79.891 Long term (current) use of opiate analgesic; Z79.899 Other long term (current) drug therapy
CPT/HCPCS: 88305; 43239; J2001; J2704

== ENCOUNTER → 2019-01-18 | Outpatient (CLI) | payer MEDICARE ==
--- NOTE | 2019-01-19 07:47 | XR ---
EXAMINATION TYPE: XR cervical spine comp DATE OF EXAM: 01/18/2019 CLINICAL HISTORY: pain COMPARISON: NONE TECHNIQUE: Frontal, lateral, oblique, swimmers, and open mouth view of the cervical spine are obtaine d. FINDINGS: The cervical spine is visualized in its entirety from C1 thru the top of T1 level. It is s atisfactory in alignment without evidence of acute fracture or dislocation. The pre-vertebral soft t issue appears within normal limits. Severe degenerative disc space narrowing at C5-6 with moderate na rrowing at C4-5 and C6-7. Ventral and dorsal spondylosis identified with the neural foraminal encroac hment seen bilaterally at c5 6 and C6-7. The C1-C2 articulation is unremarkable on the open mouth vie w. The oblique images are within normal limits. IMPRESSION: No acute fracture or dislocation is seen in the cervical spine.ICD 10 NO FRACTURE, INITI AL EVALUATION
== END | disposition home or self-care (01) ==
LOC: RADXRMAIN 17:41
PROVIDERS: ATTEND Internal Medicine Geriatric Medicine
DX: M54.2 Cervicalgia (principal)
CPT/HCPCS: 72050

== ENCOUNTER → 2019-02-03 | Outpatient (CLI) | payer MEDICARE ==
--- NOTE | 2019-02-03 16:08 | MR ---
MRI CERVICAL SPINE: CLINICAL HISTORY: Headache and neck pain with right arm weakness. TECHNIQUE: Multiplanar, multisequence imaging of the cervical spine is performed without IV contrast. COMPARISON: Cervical spine x-ray January 18, 2019 FINDINGS: Sagittal images of the cervical spine show the craniocervical junction to appear within nor mal limits. The cervical and upper thoracic spinal cord is normal in course, caliber, and signal. Th ere is slight grade 1 retrolisthesis of C4 on C5. The vertebral body heights are normal. Mild disc sp marine narrowing C4-C5 level. [id number] disc space narrowing with vacuum disc phenomenon at C5-C6 and C6-C7 levels. The bone marrow signal intensity is within normal limits. Axial images show the C2-C3 level to appear within normal limits. Axial images at C3-C4 level show uncovertebral facet degenerative changes bilaterally causing mild-to -moderate left and mild right-sided neural foraminal narrowing. Axial images at C4-C5 level show good vertebral facet degenerative changes bilaterally with central d isc protrusion effacing the anterior thecal sac of the ventral surface of the spinal cord which is sl ightly flattened, there is advanced left and moderate right-sided neural foraminal narrowing. Axial images at C5-C6 levels from broad-based left paracentral disc protrusion effacing and lateral t hecal sac with advanced left and moderate to advanced right-sided neural foraminal narrowing. Axial images at C6-C7 levels show broad-based central disc protrusion effaces the anterolateral theca l sac of the ventral surface of the spinal cord and causing advanced left and moderate right-sided ne ural foraminal narrowing. Axial images at C7-T1 level are within normal limits. IMPRESSION: Multilevel degenerative changes in the cervical spine with findings most prominent at C4- C5 through C6-C7 levels as detailed above.
== END | disposition home or self-care (01) ==
LOC: RADMRIMAIN 15:06
PROVIDERS: ATTEND Internal Medicine Geriatric Medicine
DX: M48.02 Spinal stenosis, cervical region (principal); M50.221 Other cervical disc displacement at C4-C5 level; M47.812 Spondylosis without myelopathy or radiculopathy, cervical region
CPT/HCPCS: 72141

== ENCOUNTER → 2020-03-08 | Outpatient (CLI) | payer MEDICARE ==
--- NOTE | 2020-03-08 15:45 | US ---
EXAMINATION TYPE: US carotid duplex BILAT DATE OF EXAM: 03/08/2020 COMPARISON: NONE CLINICAL HISTORY: I10 hypertension. HTN EXAM MEASUREMENTS: RIGHT: Peak Systolic Velocity (PSV) cm/sec ----- Right CCA: 75.4 ----- Right ICA: 98.1 ----- Right ECA: 125 ICA/CCA ratio: 1.3 RIGHT: End Diastole cm/sec ----- Right CCA: 16.2 ----- Right ICA: 21.4 ----- Right ECA: 14.9 LEFT: Peak Systolic Velocity (PSV) cm/sec ----- Left CCA: 143 ----- Left ICA: 101 ----- Left ECA: 109 ICA/CCA ratio: .7 LEFT: End Diastole cm/sec ----- Left CCA: 35.3 ----- Left ICA: 32.6 ----- Left ECA: 27.2 VERTEBRALS (direction of flow): Right Vertebral: Antegrade Left Vertebral: Antegrade Rhythm: Normal Grayscale, color Doppler, spectral Doppler imaging performed of the carotid arteries. Waveform analys is does not show significant stenosis of the internal carotid arteries. No significant stenosis seen IMPRESSION: No hemodynamic significant stenosis of the proximal internal carotid arteries bilaterall y by Doppler criteria, an indirect measurement of carotid stenosis. Criteria for Assigning % of Stenosis / Diameter reduction (Estimation based on the indirect measurements of the internal carotid artery velocities (ICA PSV). 1. Normal (no stenosis)=ICA PSV < 125 cm/s: ratio < 2.0: ICA EDV<40 cm/s. 2. Less than 50% stenosis=ICA PSV < 125 cm/s: ratio < 2.0: ICA EDV<40 cm/s. 3. 50 to 69% stenosis=ICA PSV of 125 to 230 cm/s: ration 2.0 ? 4.0: ICA EDV 40-100 cm/s. 4. Greater than 70% stenosis to near occlusion= ICA PSV > 230 cm/s: ratio > 4.0: ICA EDV > 100 cm/s. 5. Near occlusion= ICA PSV velocities may be low or undetectable: variable ratio and ICA EDV. 6. Total occlusion=unable to detect flow.
== END | disposition home or self-care (01) ==
LOC: RADUSWWP 13:21
PROVIDERS: ATTEND Nurse Practitioner Gerontology
DX: I10 Essential (primary) hypertension (principal)
CPT/HCPCS: 93880

== ENCOUNTER → 2021-07-29 | Outpatient (CLI) | payer MEDICARE ==
--- NOTE | 2021-07-29 18:18 | CT ---
EXAMINATION TYPE: CT abdomen pelvis w con DATE OF EXAM: 07/29/2021 COMPARISON: 07/15/2018 HISTORY: Right sided abdominal pain x2 weeks. CT DLP: 888.7 mGycm Automated exposure control for dose reduction was used. CONTRAST: Performed with IV Contrast, patient injected with 100ml mL of Isovue 300. Images obtained from the diaphragm to the floor the pelvis with IV contrast. Lung bases are clear of infiltrate. There is large hiatal hernia. Heart size is normal. There is no p ericardial effusion. Liver spleen pancreas stomach appear intact. The bile ducts are not dilated. Gallbladder is contracte d. There is no adrenal mass. Kidneys show satisfactory contrast opacification. There are multiple left-s ided renal calculi up to 3 mm. There is no hydronephrosis. Ureters are not dilated. There is no retro peritoneal adenopathy. Bladder distends smoothly. There is right hip prosthesis. There is no inguinal hernia. No free fluid in the pelvis. No evidence of a pelvic mass. There is no mesenteric edema. There is no ascites or free air. No sign of a bowel obstruction. Append ix not seen. No sign thickened appendix. The lumbar vertebra appear intact. There is multilevel vacuum disc and disc space narrowing. No compr ession fracture. Bony pelvis appears intact. Sacroiliac joints are intact. Terminal ileum appears nor mal. IMPRESSION: Multiple nonobstructing renal calculi mainly in the left kidney. Hiatal hernia. Appendix not seen. Re nal calculi increased compared to old exam.
== END | disposition home or self-care (01) ==
LOC: RADCTMAIN 15:02
PROVIDERS: ATTEND Nurse Practitioner Gerontology
DX: N20.0 Calculus of kidney (principal); K44.9 Diaphragmatic hernia without obstruction or gangrene
CPT/HCPCS: 82565; 84520; 74177; 36415; Q9967

== ENCOUNTER 2022-11-18 10:06 | Day surgery (SDC) | payer MEDICARE ==
[2022-11-18 11:01] VITALS: RESP 16; TEMP 97.3
[2022-11-18] MEDS ORDERED: LIDOCAINE 1% (10MG/ML) FOR IV START INTRADERMA ONE (11:01)
[2022-11-18] MEDS ORDERED: PROPOFOL 10 MG/ML 20 ML VIAL IV ONE (12:14)
--- NOTE | 2022-11-18 12:32 | P.PCN ---
Date of Procedure: 11/18/22 Procedure(s) Performed: BRIEF HISTORY: Patient is a 72-year-old pleasant white fmale scheduled for an elective colonoscopy as a part of evaluation of chronic diarrhea for the last 2 years duration. He is status post 5 loose watery bowel movements daily. No blood or mucus in the stool. PROCEDURE PERFORMED: Colonoscopy with random biopsies and snare polypectomy. PREOPERATIVE DIAGNOSIS: Chronic diarrhea of 2 years duration.. IV sedation per Anesthesia. PROCEDURE: After informed consent was obtained, the patient, was brought into the endoscopy unit. IV sedation was administered by Anesthesia under continuous monitoring. Digital rectal examination was normal. Initially the Olympus CF-160 flexible video colonoscope was then inserted in the rectum, gradually advanced into the cecum without any difficulty. Careful examination was performed as the scope was gradually being withdrawn. Ileocecal valve and the appendiceal orifice were visualized and appeared normal. Prep was excellent. Mucosa of the cecum, ascending colon, appeared normal. In the transverse colon there was a 5 mm and 1 cm broad-based polyps removed by snare polypectomy. Rest of the transverse colon, descending colon, sigmoid colon, and rectum appeared normal. Moderate sigmoid diverticulosis. Biopsies were done from ascending and descending colon to rule out microscope/collagenous colitis. Retroflexion was performed in the rectum and no lesions were seen. The patient tolerated the procedure well. IMPRESSION: 5 mm and 1 cm transverse colon polyp status post polypectomy Moderate sigmoid diverticulosis RECOMMENDATIONS: Findings of this examination were discussed with the patient as well as a family.. He was advised to follow with the biopsy results. If the biopsy result adenoma he can have a repeat colonoscopy in 3 years.
[2022-11-18] MEDS ORDERED: IV FLUID CONTINUATION 1,000 ML IV ONE ×2 (12:34)
[2022-11-18 13:31] VITALS: BP 128/75; PULSE 57
== END 2022-11-18 13:50 | disposition home or self-care (01) ==
LOC: ORWHC2ENDO 10:06
PROVIDERS: ATTEND Internal Medicine Gastroenterology
DX: D12.3 Benign neoplasm of transverse colon (principal); K52.9 Noninfective gastroenteritis and colitis, unspecified; K57.30 Diverticulosis of large intestine without perforation or abscess without bleeding; Z88.5 Allergy status to narcotic agent; I10 Essential (primary) hypertension; K21.9 Gastro-esophageal reflux disease without esophagitis; Z79.899 Other long term (current) drug therapy
CPT/HCPCS: 88305; 45380; 45385; J2704

== ENCOUNTER → 2023-03-07 | Outpatient (CLI) | payer MEDICARE ==
--- NOTE | 2023-03-07 15:01 | MR ---
EXAMINATION TYPE: MR cervical spine wo/w con DATE OF EXAM: 03/07/2023 12:39 PM CLINICAL INDICATION:Male, 72 years old with history of M54.2 CERVICALGIA; PHH, Neck pain, headaches, numbness in hands. Hx head injury. COMPARISON: 02/03/2019. TECHNIQUE: Multi planar, multi sequence imaging was performed utilizing: T1-weighted, T2-weighted, an d turbo inversion recovery imaging of the cervical spine. IV Contrast: 9 cc Gadavist (none if empty) FINDINGS: Alignment: The cervical vertebral bodies have preserved heights. Alignment is within normal limits gi kayce patient positioning. Bones: Scattered Modic endplate changes with osteophytes and disc space narrowing. Multilevel degener ative disc disease is noted and most pronounced at the C4-C7 vertebral levels. Cord: The spinal cord is unremarkable with regards to their signal intensity and morphology. Discs: Multilevel disc desiccation is present. C2-C3: No significant disc pathology. The spinal canal is patent. No neural foraminal stenosis. C3-C4: No significant disc pathology. The spinal canal is patent. Bilateral facet and uncovertebral joint arthropathy are present with mild left neural foraminal stenosis. The right neural foramen is p atent. C4-C5: A disc osteophyte complex is present with mild spinal canal stenosis. Bilateral facet and unc overtebral joint arthropathy are present with moderate bilateral neural foraminal stenosis. C5-C6: A disc osteophyte complex is present with mild spinal canal stenosis. Bilateral facet and unc overtebral joint arthropathy are present with moderate to severe bilateral neural foraminal stenosis. C6-C7: A disc osteophyte complex is present with moderate spinal canal stenosis. Bilateral facet and uncovertebral joint arthropathy are present with moderate to severe bilateral neural foraminal steno sis. C7-T1: No significant disc pathology. The spinal canal is patent. No neural foraminal stenosis. Other: None. IMPRESSION: 1. C6-C7 moderate spinal canal stenosis. No evidence for disc herniation. No abnormal postcontrast en hancement. 2. Mild to moderate disc degeneration with associated osteoarthritic changes with neural foraminal st enosis worse at L2 C5 C6 and C6-C7 with moderate to severe stenosis bilaterally.
== END | disposition home or self-care (01) ==
LOC: RADMRIMAIN 11:55
PROVIDERS: ATTEND Internal Medicine Geriatric Medicine
DX: M48.02 Spinal stenosis, cervical region (principal); M50.323 Other cervical disc degeneration at C6-C7 level; M47.812 Spondylosis without myelopathy or radiculopathy, cervical region; M99.71 Connective tissue and disc stenosis of intervertebral foramina of cervical region
CPT/HCPCS: 72156; A9585

== ENCOUNTER → 2023-05-11 | Outpatient (CLI) | payer MEDICARE ==
[2023-05-11 14:18] VITALS: BP 142/78; PULSE 89; RESP 15; TEMP 98.6
--- NOTE | 2023-05-11 15:04 | P.PAINPG ---
Objective - Vital Signs Vital signs: Intake & Output 05/10/23 05/11/23 05/11/23 18:59 06:59 18:59 Weight 80.739 kg PQRS Measure Charge Sheet Comment: HISTORY OF PRESENT ILLNESS: A 73 yr old male as a referral from Dr Bal presents today w severe and chronic neck pain secondary to DDD, spondylosis and facet arthropathy without myelopathy for evaluation. Pt states pain level is provoked at 10 /10 in intensity, constant, localized in the cervical spine, predominantly axial, dull in character w occasional shooting pain towards the head, BL shoulders and hands. Pain is provoked by lifting. Pain is alleviated by medications (Percocet 5/325mg, Baclofen, Tyl), heat, PT x 3 sessions in Feb 2023 which caused intractable pain, repositioning and rest. Cervical disability score at 20. PMH: OA, CVA, GERD, HTN, IBS, Anxiety PSH: Colonoscopy w Polypectomy (2022), EGD w Biopsy (2018), Back Surgery, Heart Catheterization x5, L Inguinal Hernia Repair, BL Knee Arthroscopy, L RTC Repair, L Index Finger Lipoma Resection SH: Negative x3 FH: Fa- Parkinson's/ at age 72. Mo- No Reported History All: See list Meds: See list REVIEW OF ORGAN SYSTEMS: CONSTITUTIONAL: No fevers or chills. No recent weight loss. NEUROLOGICAL: + numbness and tingling along the distal extremities. No seizure disorders or headaches. MUSCULOSKELETAL: + pain PSYCHIATRIC: Denies current depression or suicidal thoughts. Physical Examinations : Constitutional : Cooperative , not in acute distress . Neurologic : Cranial nerve II to XII intact. No focal neurological deficits. Psychiatric : alert & oriented x 3. Matching mood & appropriate affect. Judgment & insight intact. Musculoskeletal : Cervical Spine Motor strength in the deltoid and biceps: Normal right side. Normal Left side Motor strength biceps and the wrist extensors: Normal right side . Normal left side Motor strength in the triceps muscle: Normal right side. Normal left side Deep tendon reflexes: Normal at the biceps. Normal at Brachioradialis. Normal at triceps Vertebral body tenderness to deep palpation over C6 Cervical facet loading test: positive bilaterally Spurling test: positive bilaterally over C6-C7 Neck distraction test: positive bilaterally Brisa sign: positive bilaterally Lumbar spine Motor strength lower extremities ,thigh and legs 5/5 Right side , 5/5 Left side Deep tendon reflexes : Normal Knee Jerk. Normal Ankle Jerk Vertebral body tenderness over Albarado Test positive Lumbar facet Loading Test: positive Right / positive Left Range of motion of the lumbar spine Flexion 30 degrees, extension 10 degrees Straight Leg Raise test: Left/ Right positive at degrees Ayse test: positive right / positive left. Severe tenderness over the Sacroiliac joint on the Right / Left sides Gaenslen test: positive bilaterally Seated flexion test: positive bilaterally. Sacral spine : Severe tenderness over the Sacroiliac joint: right side / left side Range of motion: Flexion of the lumbar spine <60 degrees Range of motion: Extension of the lumbar spine <20 degrees Gaenslen's Test positive Ayse test: positive right side / left side Thigh Thrust Test Sacral Thrust Test Imaging: MRI w/ without contrast of the cervical spine from 03/07/23 reviewed Assessment/ Plan : Cervical stenosis, cervical DDD Recommendation of PRASHANTH C6-C7 #1. May need a series of injections for optimal pain relief. Risks, benefits of procedure discussed and patient verbalized understanding. Admits to anti- coagulant use or medical history of diabetes. Protocol for discontinuation/ continuation of medications raad procedure discussed. All questions answered. I have spent greater than 30 minutes on patient care today. Dr Damian was available by phone for the evaluation of this patient. The time was used to review the medical records including relevant urine studies and Prescription history (MAPs), review of the available imaging, evaluation and examination of the patient, coordination of care with the medical staff and if applicable referring physicians, as well as creation of the medical record PQRS Narrative: Smoking Status Never smoker Home Medications: Ambulatory Orders Multivitamins, Thera [Theragran] 1 each PO DAILY 09/01/14 Losartan [Cozaar] 50 mg PO HS 06/21/18 Omeprazole 40 mg PO BID #30 capsule. 07/15/18 Tamsulosin HCl [Flomax] 0.4 mg PO BID 07/29/18 Curcumin(Unk) 1 tab PO DAILY 11/11/22 DULoxetine HCL [Cymbalta] 60 mg PO DAILY 11/11/22 Ibuprofen 1,000 mg PO BID 11/11/22 Latanoprost [Latanoprost 0.005%] 1 drop RIGHT EYE DIRECTED 11/11/22 Controlled Substance Measures - Controlled Substance Measures Is patient prescribed a controlled substance at discharge?: No
== END ==
LOC: PNWHC3 13:27
PROVIDERS: ATTEND Specialist
DX: M50.30 Other cervical disc degeneration, unspecified cervical region (principal); M48.02 Spinal stenosis, cervical region; Z88.0 Allergy status to penicillin; Z91.011 Allergy to milk products; Z91.018 Allergy to other foods
CPT/HCPCS: 99211

== ENCOUNTER 2023-06-16 09:06 | Day surgery (SDC) | payer MEDICARE ==
[2023-06-16 10:17] VITALS: TEMP 97.2
[2023-06-16] MEDS ORDERED: DEXAMETHASONE SOD PHOSPHATE 10 MG/ML 1 ML VIAL ONE (11:15)
[2023-06-16] MEDS ORDERED: IOPAMIDOL M300 15ML VIAL ONE (11:15)
[2023-06-16] MEDS ORDERED: ROPIVACAINE 5MG/ML 20ML VIAL ONE (11:15)
[2023-06-16 11:54] VITALS: BP 126/79; PULSE 63; RESP 20
--- NOTE | 2023-06-16 12:01 | P.PCN ---
Description of Procedure: PROCEDURE 1. Injection of radio contrast material into cervical epidural space, cervical epidurogram, interpretation of cervical epidurogram, Cervical epidural steroid injection under fluoroscopic guidance, C6-7 (fluoroscopy images available in the radiology department ) 2. Cervical epidurogram. PREOPERATIVE DIAGNOSIS: 1- Cervical Degenerative Disc Diseases 2- Cervical radiculopathy., 3-cervical spondylosis with cervical Facet arthropathy without myelopathy.4-cervical spinal stenosis POSTOPERATIVE DIAGNOSIS: : 1- Cervical Degenerative Disc Diseases , 2- Cervical radiculopathy. 3-,cervical spondylosis with cervical Facet arthropathy without myelopathy. 4-cervical spinal stenosis ANESTHESIA: Local anesthetics infiltration. In the OR continuous pulse ox, EKG, blood pressure and verbal communication was maintained. EBL : None PROCEDURE INDICATION: The patient with neck pain and radiculitis unresponsive to conservative treatment consents for procedure. Discussed the procedure, alternatives and possible complications which may include increased pain, infection, bleeding, nerve damage, paralysis all of which could be permanent. Patient understands and all questions were answered. PROCEDURE DESCRIPTION : After getting consent patient was taken to the OR , positioned in prone position and time out was completed. A pillow was placed under the patients chest to increase the cervical interlaminar space. The cervical area was prepped and draped in the usual sterile fashion. Using anterior-posterior fluoroscopy, interlaminar space was identified and the skin over this site was marked and then infiltrated with 1% lidocaine subcutaneously. Subsequently, a 20-gauge 3-1/2-inch Tuohy epidural needle was inserted and advanced toward the epidural space with the loss of resistance technique using a syringe filled with preservative-free normal saline and guided by AP and lateral fluoroscopy. Negative CSF, negative blood, negative paresthesia. The correct needle position in the epidural space was verified with the injection of 2 mL of the water soluble contrast dye Isovue-200 and observing an excellent epidurogram with the epidural spread of the dye, after repeat negative aspiration 3 mL solution was injected which consists of 1 mL of preservative-free normal saline mixed with 2 mL of 20 mg dexamethasone and a washout of epidurogram was seen. Needle was withdrawn intact, skin was cleansed, and bandages were applied. Disposition: Patient tolerated the procedure well. No complication. Patient was placed in supine position and transferred to the recovery room area in stable condition and there was no evidence of upper or lower extremity motor or sensory deficit after the procedure patient was discharged from recovery room after discharge criteria met and home discharge instructions was given by the staff and patient will follow with the pain clinic in 2-4 weeks
--- NOTE | 2023-06-16 21:22 | FL ---
EXAMINATION TYPE: FL guided pain mgmt statistic DATE OF EXAM: 06/16/2023 FLUOROSCOPY Cervical epidural steroid injection, 4sec fl time, DAP=.[id number] mGycm2. 2 images submitted.
== END 2023-06-16 12:05 | disposition home or self-care (01) ==
LOC: ORPAIN 09:06
PROVIDERS: ATTEND Pain Medicine Interventional Pain Medicine
DX: M50.123 Cervical disc disorder at C6-C7 level with radiculopathy (principal); M47.22 Other spondylosis with radiculopathy, cervical region; M48.02 Spinal stenosis, cervical region; Z88.5 Allergy status to narcotic agent
CPT/HCPCS: 62321; J1100; Q9967; J2795

== ENCOUNTER → 2023-07-01 | Outpatient (CLI) | payer MEDICARE ==
[2023-07-01 14:00] VITALS: BP 142/72; PULSE 83; RESP 15; TEMP 98.5
--- NOTE | 2023-07-01 14:35 | P.PAINPG ---
PQRS Measure Charge Sheet Comment: HISTORY OF PRESENT ILLNESS: A 73 yr old male presents today w severe and chronic neck pain secondary to DDD, spondylosis and facet arthropathy without myelopathy for evaluation s/p PRASHANTH C6- C7 #1. Pt states he experienced 0% pain relief s/p procedure.. Pt states pain level is provoked at 7 /10 in intensity, constant, localized in the cervical spine, predominantly axial, dull in character w occasional shooting pain towards the BL hands. Pain is provoked by lifting. Pain is alleviated by medications, heat, PT x 3 sessions in Feb 2023 which caused intractable pain, repositioning and rest. Cervical disability score at 20. Interventional procedures include PRASHANTH C6-C7 x1 Medications include Percocet 5/325mg, Baclofen, Tyl REVIEW OF ORGAN SYSTEMS: CONSTITUTIONAL: No fevers or chills. No recent weight loss. NEUROLOGICAL: + numbness and tingling along the distal extremities. No seizure disorders or headaches. MUSCULOSKELETAL: + pain PSYCHIATRIC: Denies current depression or suicidal thoughts. Physical Examinations : Constitutional : Cooperative , not in acute distress . Neurologic : Cranial nerve II to XII intact. No focal neurological deficits. Psychiatric : alert & oriented x 3. Matching mood & appropriate affect. Judgment & insight intact. Musculoskeletal : Cervical Spine Motor strength in the deltoid and b iceps: Normal right side. Normal Left side Motor strength biceps and the wrist extensors: Normal right side . Normal left side Motor strength in the triceps muscle: Normal right side. Normal left side Deep tendon reflexes: Normal at the biceps. Normal at Brachioradialis. Normal at triceps Vertebral body tenderness to deep palpation Cervical facet loading test: positive bilaterally C4-C5, C5-C6 Spurling test: positive bilaterally Neck distraction test: positive bilaterally Brisa sign: positive bilaterally Lumbar spine Motor strength lower extremities ,thigh and legs 5/5 Right side , 5/5 Left side Deep tendon reflexes : Normal Knee Jerk. Normal Ankle Jerk Vertebral body tenderness over Albarado Test positive Lumbar facet Loading Test: positive Right / positive Left Range of motion of the lumbar spine Flexion 30 degrees, extension 10 degrees Straight Leg Raise test: Left/ Right positive at degrees Ayse test: positive right / positive left. Severe tenderness over the Sacroiliac joint on the Right / Left sides Gaenslen test: positive bilaterally Seated flexion test: positive bilaterally. Sacral spine : Severe tenderness over the Sacroiliac joint: right side / left side Range of motion: Flexion of the lumbar spine <60 degrees Range of motion: Extension of the lumbar spine <20 degrees Gaenslen's Test positive Ayse test: positive right side / left side Thigh Thrust Test Sacral Thrust Test Imaging: MRI w/ without contrast of the cervical spine from 03/07/23 reviewed Assessment/ Plan : Cervical stenosis, cervical DDD Recommendation of BL MBB C4-C6 #1. May need a series of injections, up until RFA for optimal pain relief. Risks, benefits of procedure discussed and patient verbalized understanding. Admits to anti- coagulant use or medical history of diabetes. Minimal anesthesia, including Fentanyl and Versed, if clinically indicated. Protocol for discontinuation/ continuation of medications raad procedure discussed. All questions answered. I have spent greater than 30 minutes on patient care today. Dr Damian was available by phone for the evaluation of this patient. The time was used to review the medical records including relevant urine studies and Prescription history (MAPs), review of the available imaging, evaluation and examination of the patient, coordination of care with the medical staff and if applicable referring physicians, as well as creation of the medical record PQRS Narrative: Smoking Status Never smoker Hx Alcohol Use (MH) No Home Medications: Ambulatory Orders Multivitamins, Thera [Theragran] 1 each PO DAILY 09/01/14 Losartan [Cozaar] 50 mg PO HS 06/21/18 Tamsulosin HCl [Flomax] 0.4 mg PO BID 07/29/18 Curcumin(Unk) 1 tab PO DAILY 11/11/22 DULoxetine HCL [Cymbalta] 60 mg PO QAM 11/11/22 Latanoprost [Latanoprost 0.005%] 1 drop BOTH EYES HS 11/11/22 Baclofen 10 mg PO TID 05/21/23 oxyCODONE HCL/ACETAMINOPHEN [oxyCODONE HCL/ACETAMINOPHEN 5-325] 0.5 tab PO HS PRN 05/21/23 Acetaminophen [Tylenol Extra Strength] 1,000 mg PO BID 05/28/23 Omeprazole 20 mg PO BID 06/11/23 Controlled Substance Measures - Controlled Substance Measures Is patient prescribed a controlled substance at discharge?: No
== END ==
LOC: PNWHC3 13:30
PROVIDERS: ATTEND Specialist
DX: M50.321 Other cervical disc degeneration at C4-C5 level (principal); M50.322 Other cervical disc degeneration at C5-C6 level; M48.02 Spinal stenosis, cervical region; Z88.5 Allergy status to narcotic agent; Z91.018 Allergy to other foods; Z91.011 Allergy to milk products
CPT/HCPCS: 99211

== ENCOUNTER 2023-07-17 12:40 | Day surgery (SDC) | payer MEDICARE ==
[2023-07-17] MEDS: LACTATED RINGERS 1,000 ML IV SCH (13:08)
[2023-07-17 13:29] VITALS: RESP 16; TEMP 97
[2023-07-17] MEDS ORDERED: MIDAZOLAM 2 MG/2 ML VIAL ONE (14:06)
[2023-07-17] MEDS ORDERED: fentaNYL (PF) 50 MCG/ML 2 ML AMP ONE (14:06)
[2023-07-17] MEDS ORDERED: ROPIVACAINE 5MG/ML 20ML VIAL ONE (14:12)
--- NOTE | 2023-07-17 14:40 | P.PCN ---
Description of Procedure: Preprocedure diagnosis. Cervical facet joint arthropathy, cervical spine spondylosis, cervical degenerative disc disease. Postprocedure diagnosis. As above. Procedure done. Bilateral C4-5, C5-6 facet joint (C4, C5, C6 medial branch of dorsal ramus) diagnostic injection with local anesthetics under fluoroscopic guidance. Anesthesia. As per anesthesia department. IV sedation of Versed milligram, fentanyl micrograms give in OR. Continuous pulse ox, EKG, blood pressure and verbal communication was maintained with the patient in OR. Blood loss. None. Indication. Patient has got the diagnoses of cervical spondylolysis, facet joint arthropathy with neck pain. Discussed with the patient procedure, alternatives, complications including infection, bleeding, nerve damage, paralysis all of which could be permanent. Patient understands and all questions are answered. Procedure note. After getting consent patient in OR in prone position. Back of the neck was prepped with chlorhexidine and draped in sterile fashion. After injecting 3 mL of plain 1% lidocaine subcutaneously, a 22-gauge spinal needle was introduced under tunnel vision of the fluoroscope AP view at the waist of the articular pillar (lateral mass) at C4 vertebral level. In the lateral view of the fluoroscope it was confirmed that the tip of the needle stayed within the dorsal half of the articular pillar (lateral mass). So, right C4-5 facet joint was targeted by blocking right C4 and C5 medial branch, right C5-6 facet joint was targeted by blocking right C5 and C6 medial branch. In exactly the same way , after subcutaneous injection of lidocaine, 22-gauge spinal needles were introduced under tunnel vision of the fluoroscope AP view at the waist of the articular pillars (lateral mass) at C5 and C6 vertebral level. In the lateral view of the fluoroscope it was confirmed that the tip of the needle stayed within the dorsal half of the articular pillar (lateral mass). At each needle, 0.5 mL of 0.5% ropivacaine preservative-free was injected. In exactly same way left C4-5, C5-6 facet joints were targeted by blocking left C4, C5, C6 medial branch of dorsal ramus. After the procedure needle was taken out and bandage was applied. Disposition. Patient tolerated the procedure well. No complication. Discharged home in stable condition.
--- NOTE | 2023-07-17 15:02 | FL ---
Fluoroscopy INDICATION: Pain FINDINGS: Fluoroscopy time: 48.4 seconds. Total dose area product (DAP) in uGy*m?, mGy*cm? (or similar): 0.79157 Images obtained: 4. IMPRESSION: 1. Documentation of fluoroscopy.
[2023-07-17 15:19] VITALS: BP 137/69; PULSE 70
== END 2023-07-17 15:14 | disposition home or self-care (01) ==
LOC: ORPAIN 12:40
PROVIDERS: ATTEND Pain Medicine Interventional Pain Medicine
DX: M47.812 Spondylosis without myelopathy or radiculopathy, cervical region (principal); M50.30 Other cervical disc degeneration, unspecified cervical region; I10 Essential (primary) hypertension; F41.9 Anxiety disorder, unspecified; K21.9 Gastro-esophageal reflux disease without esophagitis; Z88.5 Allergy status to narcotic agent; Z88.6 Allergy status to analgesic agent; Z91.018 Allergy to other foods; Z79.899 Other long term (current) drug therapy
CPT/HCPCS: 64490; 64491 ×2; J2250; J3010; J2795

== ENCOUNTER → 2023-12-29 | Outpatient (CLI) | payer MEDICARE ==
--- NOTE | 2023-12-29 14:11 | XR ---
EXAMINATION TYPE: XR cervical spine w flex/ext DATE OF EXAM: 12/29/2023 TECHNIQUE: Frontal, lateral, oblique, swimmers, and open mouth view of the cervical spine are obtaine d. Additional flexion and extension views are obtained. HISTORY: M50.10 cervical disorder COMPARISON: 01/18/2019 FINDINGS: The cervical spine is visualized in its entirety from C1 thru the top of T1 level, it is s atisfactory in alignment without evidence of acute fracture or dislocation. The pre-vertebral soft t issue appears within normal limits. As the operative changes of ACDF at C5-6 and C6-7. Anterior fixat ion plate and intervertebral body spacers are well-positioned. Postoperative alignment is within norm al limits. There is no evidence for instability or malalignment. The C1-C2 articulation is within nor mal limits on the open mouth view. The oblique images are within normal limits. IMPRESSION: Postoperative changes as discussed
== END | disposition home or self-care (01) ==
LOC: RADXRMAIN 12:52
PROVIDERS: ATTEND Neurological Surgery
DX: M50.10 Cervical disc disorder with radiculopathy, unspecified cervical region
CPT/HCPCS: 72052

== ENCOUNTER → 2024-02-10 | Outpatient (CLI) | payer MEDICARE ==
[2024-02-10 11:23] VITALS: BP 144/77; PULSE 67; RESP 16
--- NOTE | 2024-02-10 14:40 | P.PAINPG ---
PQRS Measure Charge Sheet Comment: HISTORY OF PRESENT ILLNESS: A 73 yr old male as a referral from Dr Albright presents today w severe and chronic neck pain secondary to radiculopathy, spondylosis and facet arthropathy without myelopathy for evaluation s/p BL MBB C4-C6 #1. Pt states he experienced 30 % pain relief x 1 mo s/p procedure. Pt states pain level is provoked at 8 /10 in intensity, intermittent, localized in the L upper cervical spine, predominantly axial, sharp in character w shooting pain towards the scalp. Pain is provoked w certain head positions. Pain is alleviated by medications, heat, PT x 3 sessions in Feb 2023 which caused intractable pain, physician guided stretching regimen daily since Feb 2023, repositioning and rest. Interventional procedures include PRASHANTH C6-C7 x1, BL MBB C4-C6 x1 Medications include Percocet 5/325mg, Baclofen, Tyl REVIEW OF ORGAN SYSTEMS: CONSTITUTIONAL: No fevers or chills. No recent weight loss. NEUROLOGICAL: + numbness and tingling along the distal extremities. No seizure disorders or headaches. MUSCULOSKELETAL: + pain PSYCHIATRIC: Denies current depression or suicidal thoughts. Physical Examinations : Constitutional : Cooperative , not in acute distress . Neurologic : Cranial nerve II to XII intact. No focal neurological deficits. Psychiatric : alert & oriented x 3. Matching mood & appropriate affect. Judgment & insight intact. Musculoskeletal : Cervical Spine +L YAJAIRA TTP Motor strength in the deltoid and biceps: Normal right side. Normal Left side Motor strength biceps and the wrist extensors: Normal right side . Normal left side Motor strength in the triceps muscle: Normal right side. Normal left side Deep tendon reflexes: Normal at the biceps. Normal at Brachioradialis. Normal at triceps Vertebral body tenderness to deep palpation Cervical facet loading test: positive bilaterally C4-C5, C5-C6 Spurling test: positive bilaterally Neck distraction test: positive bilaterally Brisa sign: positive bilaterally Lumbar spine Motor strength lower extremities ,thigh and legs 5/5 Right side , 5/5 Left side Deep tendon reflexes : Normal Knee Jerk. Normal Ankle Jerk Vertebral body tenderness over Albarado Test positive Lumbar facet Loading Test: positive Right / positive Left Range of motion of the lumbar spine Flexion 30 degrees, extension 10 degrees Straight Leg Raise test: Left/ Right positive at degrees Ayse test: positive right / positive left. Severe tenderness over the Sacroiliac joint on the Right / Left sides Shelby test: positive bilaterally Seated flexion test: positive bilaterally. Sacral spine : Severe tenderness over the Sacroiliac joint: right side / left side Range of motion: Flexion of the lumbar spine <60 degrees Range of motion: Extension of the lumbar spine <20 degrees Gaenslen's Test positive Ayse test: positive right side / l eft side Thigh Thrust Test Sacral Thrust Test Imaging: MRI w/ without contrast of the cervical spine from 03/07/[address] or MRI brain from Dr Albright's office Assessment/ Plan : Cervical stenosis, cervical radiculopathy, L Occipital Neuralgia/ Cervicogenic CH Recommendation of L YAJAIRA #1. Risks, benefits of procedure discussed and patient verbalized understanding. Admits to anti- coagulant use or medical history of diabetes. Minimal anesthesia, including Fentanyl and Versed, if clinically indicated. Protocol for discontinuation/ continuation of medications raad procedure discussed. All questions answered. I have spent greater than 30 minutes on patient care today. Dr Damian was available by phone for the evaluation of this patient. The time was used to review the medical records including relevant urine studies and Prescription history (MAPs), review of the available imaging, evaluation and examination of the patient, coordination of care with the medical staff and if applicable referring physicians, as well as creation of the medical record PQRS Narrative: Smoking Status Never smoker Hx Alcohol Use (MH) No Home Medications: Ambulatory Orders Multivitamins, Thera [Theragran] 1 each PO DAILY 09/01/14 Losartan [Cozaar] 50 mg PO HS 06/21/18 Tamsulosin HCl [Flomax] 0.4 mg PO BID 07/29/18 Curcumin(Unk) 1 tab PO DAILY 11/11/22 DULoxetine HCL [Cymbalta] 60 mg PO QAM 11/11/22 Latanoprost [Latanoprost 0.005%] 1 drop BOTH EYES HS 11/11/22 Baclofen 10 mg PO BID 05/21/23 oxyCODONE HCL/ACETAMINOPHEN [oxyCODONE HCL/ACETAMINOPHEN 5-325] 0.5 tab PO HS PRN 05/21/23 Acetaminophen [Tylenol Extra Strength] 1,000 mg PO BID 05/28/23 Omeprazole 20 mg PO BID 06/11/23 Controlled Substance Measures - Controlled Substance Measures Is patient prescribed a controlled substance at discharge?: No
== END ==
LOC: PNWHC3 11:01
PROVIDERS: ATTEND Specialist
CPT/HCPCS: 99211

== ENCOUNTER → 2024-03-01 | Outpatient (CLI) | payer MEDICARE ==
--- NOTE | 2024-03-01 10:06 | CT ---
EXAMINATION TYPE: CT brain wo con CT DLP: 1002.5 mGycm, Automated exposure control for dose reduction was used. 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 . Coronal and sagitta l reformats reviewed. FINDINGS: Brain: Extra-axial spaces: No abnormal extra-axial fluid collections. Ventricular system: Within normal limits Cerebral parenchyma: No acute intraparenchymal hemorrhage or mass effect. The vizcarra-white junction is well differentiated. Scattered hypoattenuating areas are seen within the subcortical and periventric ular white matter. Cerebellum: Unremarkable. Mass effect: No evidence of midline shift. Intracranial vasculature: Atherosclerotic calcifications of the intracranial vessels. Soft tissues: Normal. Calvarium/osseous structures: No depressed skull fracture. Paranasal sinuses and mastoid air cells: The mastoid air cells are clean. Mild mucosal thickening in the ethmoid sinuses. Minimal mucosal thickening of the left sphenoid sinus and bilateral maxillary si nuses. Visualized orbits: Bilateral aphakia IMPRESSION: 1. No acute intracranial process. 2. Nonspecific white matter changes, likely secondary to chronic small vessel ischemic disease. [facility], , 03/01/2024 10:04 AM
== END | disposition home or self-care (01) ==
LOC: RADCTMAIN 09:38
PROVIDERS: ATTEND Psychiatry & Neurology Neurology
DX: Z86.73 Personal history of transient ischemic attack (TIA), and cerebral infarction without residual deficits (principal); M54.81 Occipital neuralgia; I67.82 Cerebral ischemia; I67.2 Cerebral atherosclerosis
CPT/HCPCS: 70450

== ENCOUNTER 2024-03-08 08:35 | Day surgery (SDC) | payer MEDICARE ==
[2024-03-08 09:17] VITALS: RESP 16; TEMP 97.5
[2024-03-08] MEDS ORDERED: ROPIVACAINE 5MG/ML 20ML VIAL ONE (09:45)
[2024-03-08] MEDS ORDERED: methylPREDNISolone ACETATE 40 MG/ML 1 ML VIAL ONE (09:45)
--- NOTE | 2024-03-08 09:51 | P.PCN ---
Date of Procedure: 03/08/24 Procedure(s) Performed: Preoperative diagnoses= 1- Greater occipital neuralgia. 2-cervicogenic headache. 3-cervical spondylosis Postoperative diagnoses= 1-greater occipital neuralgia. 2-echogenic headache. 3- cervical spondylosis Procedure= Left Greater occipital nerve block Anesthesia= none . Estimated blood loss=minimal. Procedure indication= the patient had a history of severe chronic neck pain ,and headache, diagnosed with occipital neuralgia exam was positive for severe tenderness over the occipital nerve bilaterally, she will be a good candidate occipital nerve block, patient failed conservative management Procedure description= the patient was seen and identified in the preoperative holding area, risks and benefits and alternative of the procedure and possible complications discussed with the patient, and he agreed with the preceding, patient signed the consent, and vital signs were monitored and were stable throughout the procedure, patient was placed in the sitting position or table and the neck area was prepped and draped with a sterile fashion, vital signs were closely monitored during the procedure, 25-gauge needle advanced 1 inch lateral to the occipital protuberance on the Left side, at the location of the Left occipital nerve , then after negative aspiration for heme and CSF and there was no paresthesia during the injection, 5 ml of Robivacaine 0.5% and 40 mg of Depo-Medrol injected after negative aspiration, the needle removed. Patient tolerated the procedure well without any complication, The patient returned to supine position after the back was cleaned and a Band- Aid applied, the patient transported to recovery room in stable condition and he was monitored for 30 minutes before he was discharged home and then patient was reexamined before going home and patient was discharged in stable condition and patient will follow up with the pain clinic in a few weeks.
[2024-03-08 10:05] VITALS: BP 154/79; PULSE 69
== END 2024-03-08 10:08 | disposition home or self-care (01) ==
LOC: ORPAIN 08:35
PROVIDERS: ATTEND Specialist
DX: M54.81 Occipital neuralgia (principal); M47.812 Spondylosis without myelopathy or radiculopathy, cervical region; G44.86 Cervicogenic headache; Z88.5 Allergy status to narcotic agent
CPT/HCPCS: 64405; J2795; J1010

== ENCOUNTER → 2024-04-22 | Outpatient (CLI) | payer MEDICARE ==
--- NOTE | 2024-04-22 10:04 | MR ---
EXAMINATION TYPE: MR cervical spine gimenez con DATE OF EXAM: 04/22/2024 8:45 AM COMPARISON: 02/03/2019 CLINICAL INDICATION: Male, 74 years old with history of M50.10 CERVICAL DISC DISORDER W RADICULOPATHY , UNS, Neck pain, headaches, BUE radic, prior surgery. IV Contrast: cc (None if empty) TECHNIQUE: Multiplanar, multisequence images of the cervical spine were acquired without contrast. Findings: There are postsurgical changes of anterior metallic fusion of C5, C6 and C7. There is mild degenerative disc disease at the C4-5 level where there is mild disc space narrowing, c ircumferential disc bulge and posterior disc spur complex. The disc spur complex results in moderate mass effect on the ventral aspect of thecal sac. The C2-3 and C3-4 discs are well-preserved in height. The cervical cord is normal in size and signal intensity. There is multilevel neural foraminal stenosis as follows,; severe at C3-4 bilaterally, severe at C4-5 on the left, moderate at C4-5 on the right, and moderate at C5-6 on the right. The paraspinal soft tissues unremarkable. IMPRESSION: 1. Interval lower cervical fusion involving C5, C6 and C7. 2. No change in the multilevel neural foraminal stenosis as described above 3 no cervical cord abnormality. [facility], Workstation: ANNA 04/22/2024 10:02 AM
== END | disposition home or self-care (01) ==
LOC: RADMRIMAIN 08:09
PROVIDERS: ATTEND Neurological Surgery
DX: M48.02 Spinal stenosis, cervical region (principal); M50.123 Cervical disc disorder at C6-C7 level with radiculopathy
CPT/HCPCS: 72141